=== PATIENT | female | born 1985 | race Caucasian/White ===

== ENCOUNTER 2024-06-23 23:35 | Emergency (ER) | payer MEDICAID ==
[~2024-06-23] VITALS: Ht 165.1 cm; Wt 72.6 kg
[2024-06-24] MEDS ORDERED: NAPR-1009 PO (01:51)
[2024-06-24 02:09] VITALS: BP 120/72; TEMP 98; O2SAT 100
== END 2024-06-24 02:09 | disposition home or self-care (01) ==
LOC: ER 23:39
DX: S93.492A Sprain of other ligament of left ankle, initial encounter (principal); Z79.899 Other long term (current) drug therapy; Z60.2 Problems related to living alone; W10.9XXA Fall (on) (from) unspecified stairs and steps, initial encounter; Y93.89 Activity, other specified; Y92.89 Other specified places as the place of occurrence of the external cause; Y99.8 Other external cause status
CPT/HCPCS: 73610-TC; 73630-TC